=== PATIENT | male | born 1960 | race Caucasian/White ===

== ENCOUNTER 2020-12-14 12:42 | Outpatient (CLI) | payer OTHER | END 2020-12-14 23:59 | disposition home or self-care (01) | LOC: LAB 12:42 | PROVIDERS: ATTEND Specialist | DX: Z01.812 Encounter for preprocedural laboratory examination (principal); Z20.822 Contact with and (suspected) exposure to COVID-19 | CPT/HCPCS: C9803; U0003 ==

== ENCOUNTER 2020-12-17 05:11 | Inpatient (IN) | payer OTHER ==
[~2020-12-17] VITALS: Ht 177.8 cm; Wt 122.5 kg
[2020-12-17] MEDS ORDERED: BUPIVACAINE 0.5 % PF 150 MG/30 ML VIAL ONE (05:40)
[2020-12-17] MEDS ORDERED: ANESTHESIA TRAY IN PYXIS 1 EA TRAY MC ONE (05:40)
[2020-12-17] MEDS ORDERED: BUPIVACAINE 0.25% 75 MG/30 ML VIAL ONE (05:41)
[2020-12-17] MEDS ORDERED: BACITRACIN 50000 UNITS/VIAL ONE (05:41)
[2020-12-17] MEDS ORDERED: MIDAZOLAM HCL 2 MG/2ML VIAL ONE (06:19)
[2020-12-17] MEDS ORDERED: HYDROMORPHONE INJ 2 MG/ML DISP.SYRIN ONE (06:19)
[2020-12-17] MEDS ORDERED: TRANEXAMIC ACID 3,000 MG in SODIUM CHLORIDE IRRIG SOLUTION 70 ML IR ONE (07:00)
[2020-12-17] MEDS ORDERED: SEVOFLURANE 250 ML BOTTLE IH ONE (07:08)
[2020-12-17] MEDS ORDERED: FENTANYL PF 100MCG/2ML AMPUL ONE (08:21)
[2020-12-17] MEDS ORDERED: HYDROCODONE/APAP 5/325MG TABLET PO PRN (08:30)
[2020-12-17] MEDS ORDERED: ZOLPIDEM TARTRATE 5 MG TABLET PO PRN (08:30)
[2020-12-17] MEDS ORDERED: DOCUSATE SODIUM 250 MG CAPSULE PO PRN (08:30)
[2020-12-17] MEDS ORDERED: IV D5/0.45 NACL 1,000 ML IV PRN (08:30)
[2020-12-17] MEDS ORDERED: BISACODYL SUPP (10 MG) 10 MG/SUPP.RECT SUPP.RECT RC PRN (08:30)
[2020-12-17] MEDS ORDERED: ACETAMINOPHEN 325 MG TABLET PO PRN ×2 (08:30→11:30)
[2020-12-17] MEDS ORDERED: SENNOSIDES 8.6 MG TABLET PO PRN (08:30)
--- NOTE | 2020-12-17 09:10 | NUR ---
RN NOTE PATIENT ARRIVED INTO ROOM 309-2. PT IS AWAKE AND RESTING IN BED. A/O X3 AND TURKISH SPEAKING. COMPLAINT OF PAIN PRESENT AND PAIN MEDS GIVEN PER PROTOCOL. NO NAUSEA PRESENT. ON BIPAP AND MACHINE PROVIDED BY PT. ON RODENT EXTERMINATOR. ON BEDREST. NO EDEMA PRESENT. R KNEE CAST PRESENT. HL PRESENT ON L FA AND FLUSHES WELL. SAFETY MEASURES IN PLACE. SIDE RAILS RAISED. BED LOWERED. CALL LIGHT WITHIN REACH. WILL CONTINUE TO MONITOR.
[2020-12-17 09:20] VITALS: BP 157/92
[2020-12-17] MEDS ORDERED: HYDROMORPHONE 1 MG/1 ML DISP.SYRIN SQ ONE (10:00)
--- NOTE | 2020-12-17 11:00 | NUR ---
RN NOTE PT VISITED BY DR MARTINO FOR PAIN MANAGEMENT. OKAYED BY TO GIVE PO PAIN MED TO PT. WILL CONTINUE TO MONITOR.
[2020-12-17] MEDS: oxyCODONE IR immediate release 5 MG PO PRN (11:04)
[2020-12-17] MEDS ORDERED: LIDOCAINE 5% (PATCH) 1 EA PATCH TP ONE (11:08)
[2020-12-17] MEDS: LIDOCAINE 5% (PATCH) 1 EA PATCH TP SCH (11:20)
[2020-12-17] MEDS ORDERED: MAGNESIUM HYDROXIDE 30 ML UDC PO PRN (11:30)
[2020-12-17] MEDS ORDERED: diphenhydrAMINE HCL 25 MG CAPSULE PO PRN (11:30)
[2020-12-17] MEDS ORDERED: Z GUARD REMEDY 2 OZ OINT TP PRN (11:30)
[2020-12-17] MEDS ORDERED: MENTHOL/CETYLPYRD (CEPACOL) 1 LOZ LOZENGE PO PRN (11:30)
[2020-12-17] MEDS ORDERED: MAGNESIUM CITRATE 296 ML BOTTLE PO PRN (11:30)
[2020-12-17] MEDS ORDERED: MAG HYDROX/AL HYDROX/SIMETH 30 ML UDC PO PRN ×2 (11:30)
[2020-12-17] MEDS ORDERED: ZOLPIDEM TARTRATE 10 MG TABLET PO PRN (11:30)
[2020-12-17] MEDS ORDERED: ONDANSETRON HCL/PF 4 MG/2 ML VIAL IVP PRN (11:30)
[2020-12-17] MEDS ORDERED: CLONIDINE HCL 0.1 MG TABLET PO PRN (11:30)
[2020-12-17] MEDS ORDERED: PANTOPRAZOLE 40 MG TABLET.DR PO ONE (12:00)
[2020-12-17] MEDS ORDERED: CARI350T27 PO (12:08)
[2020-12-17] MEDS ORDERED: TAMS-12 PO (12:08)
[2020-12-17] MEDS ORDERED: ROSU20TA32 PO (12:08)
[2020-12-17] MEDS ORDERED: AMLO-213 PO (12:08)
[2020-12-17] MEDS ORDERED: FENO145T21 PO (12:08)
[2020-12-17] MEDS ORDERED: METF-881 PO (12:08)
[2020-12-17] MEDS ORDERED: EDARBYCLOR PO (12:08)
[2020-12-17] MEDS: HYDROMORPHONE 1 MG/1 ML DISP.SYRIN SQ PRN (14:01)
[2020-12-17] MEDS: ANCEF 1 GM/50 ML D5W IV SCH ×2 (14:31→23:45)
[2020-12-17] MEDS: ONDANSETRON HCL/PF 4 MG/2 ML VIAL IV PRN ×2 (14:34→18:15)
[2020-12-17 16:00] VITALS: BP 147/78
[2020-12-17] MEDS: DOCUSATE SODIUM 100 MG CAPSULE PO SCH (16:47)
--- NOTE | 2020-12-17 18:13 | NUR ---
RN NOTE PATIENT HAD 1 EPISODE OF EMESIS, ZOFRAN IVP GIVEN. WILL CONTINUE TO MONITOR.
--- NOTE | 2020-12-17 18:25 | NUR ---
RN CLOSING NOTE PT IS AWAKE AND RESTING IN BED. A/O X3 AND LAO SPEAKING. COMPLAINT OF PAIN PRESENT, BUT PT REFUSES PAIN MEDS DUE TO NAUSEA. NAUSEA PRESENT. NAUSEA MEDS GIVEN PER PROTOCOL. ON CPAP AND MACHINE PROVIDED BY PT. ON DENTAL TECHNICIAN METAL. ON BEDREST. NO EDEMA PRESENT. R KNEE CAST PRESENT. HL PRESENT ON L FA AND FLUSHES WELL. SAFETY MEASURES IN PLACE. SIDE RAILS RAISED. BED LOWERED. CALL LIGHT WITHIN REACH. REPORT TO BE GIVEN TO NIGHT NURSE FOR DEACON.
--- NOTE | 2020-12-17 20:40 | NUR ---
PIPE WELDER OPENING PATIENT IN BED WITH EYES CLOSED. NO S/S OF DISTRESS. NO C/O PAIN ARVIND. C-PAP IN BED SIDE WITH PATIENT. TELE MONITOR READING SR. SAFETY IN PLACE: BED IN LOWEST, LOCKED POSITION; CALL LIGHT WITHIN REACH. WILL CONTINUE TO MONITOR PATIENT.
[2020-12-17] MEDS ORDERED: FAMOTIDINE (20 MG) 20 MG TABLET PO SCH (21:00)
[2020-12-17] MEDS: ATORVASTATIN 40 MG TABLET PO SCH (21:11)
[2020-12-17] MEDS: TAMSULOSIN 0.4 MG CAP.SR.24H PO SCH (21:11)
[2020-12-17] MEDS: SENNOSIDES 8.6 MG TABLET PO SCH (21:11)
[2020-12-17 21:28] VITALS: BP 153/97
[2020-12-17] MEDS ORDERED: TAMSULOSIN 0.4 MG CAP.SR.24H PO SCH (22:00)
[2020-12-17] MEDS ORDERED: TEMAZEPAM 7.5 MG CAPSULE PO PRN (22:00)
[2020-12-17] MEDS ORDERED: METOCLOPRAMIDE HCL 10 MG TABLET PO PRN (22:00)
--- NOTE | 2020-12-17 22:50 | NUR ---
KEYING MACHINE OPERATOR NOTES PATIENT ASKED FOR SLEEPING MEDICATION. PER PATIENT THE PAIN MEDICATIONS MAKES HIM SICK AND ZOFRAN DO NOT ALLEVIATE THE N/V AND WHAT HE TAKES AT HOME IS SOMA. TEXTED DOCTOR SYNTHETIC DEPARTMENT SUPERVISOR, AND ORDERED REGLAN FOR NAUSEA AND RESTORIL FOR SLEEP. ORDERS CARRIED OUT.
[2020-12-18] VITALS: BP 151/91
--- NOTE | 2020-12-18 00:05 | NUR ---
SENIOR HADOOP DEVELOPER NOTES PATIENT C/O 10/10 PAIN ON R. KNEE. GIVEN REGLAN FOR N/V AND DILAUDID SQ. WILL REASSESS.
[2020-12-18] MEDS: HYDROMORPHONE 1 MG/1 ML DISP.SYRIN SQ PRN ×2 (00:06→20:26)
[2020-12-18 04:00] VITALS: BP 147/86
[2020-12-18] MEDS: CARISOPRODOL 350 MG TABLET PO PRN (04:06)
--- NOTE | 2020-12-18 04:06 | NUR ---
FULL SERVICE VENDING DRIVER NOTES IT HAS BEEN MORE THAN 3 HOURS SINCE PATIENT RECEIVED ZOFRAN, DILAUDID. RESTORIL WAS GIVEN 2243 BUT DID NOT WORK FOR PATIENT. PUT IN AN ORDER FOR SOMA 350MG. GAVE IT AT THIS TIME PER PATIENT REQUEST FOR MUSCLE PAIN. WILL CONTINUE TO MONITOR. ICE PACKS IN PLACE WELL FOR THE R. KNEE.
[2020-12-18 06:05] LABS: CALCIUM, SERUM 8.7 mg/dL (8.5-10.1); CREATININE 1.2 mg/dL (0.6-1.3); PHOSPHORUS 3.6 mg/dL (2.5-4.9); POTASSIUM 3.2 mmol/L (3.5-5.1)
--- NOTE | 2020-12-18 06:08 | NUR ---
POSTAL CARRIER CLOSING 309 PATIENT IN BED WITH EYES CLOSED. NO S/S OF RESPIRATORY DEPRESSION. PATIENT ABLE TO MAKE NEEDS KNOWN. A/OX4. ALL NEEDS ATTENDED. ALL SCHEDULED MEDS ADMINISTERED, PRN MEDS GIVEN. TELE MONITOR READING SB IN THE 50's. L. FA RUNNING D5 1/2 NS. TOLERATING. SAFETY KEPT IN PLACE THE WHOLE SHIFT: BED IN LOWEST, LOCKED POSITION; CALL LIGHT WITHIN REACH. NO SIGNIFICANT CHANGE SINCE LAST SHIFT. WILL ENDORSE CARE TO MORNING SHIFT NURSE.
[2020-12-18 06:25] LABS: BASOPHILS % (AUTO) 0.3 % (0.0-2.0); EOSINOPHILS % (AUTO) 0.3 % (0.0-6.0); HEMATOCRIT 39 % (39-51); HEMOGLOBIN 13.3 g/dL (13.5-17.5); LYMPHOCYTES # (AUTO) 1.8 /CMM (0.8-4.8); LYMPHOCYTES % (AUTO) 18.1 % (20.0-44.0); MEAN CORPUSCULAR HGB CONC 34 g/dl (31.0-36.0); MEAN CORPUSCULAR VOLUME 86 fL (80-96); MONOCYTES # (AUTO) 0.9 /CMM (0.1-1.30); MONOCYTES % (AUTO) 8.4 % (2.0-12.0); NEUTROPHILS # (AUTO) 7.4 /CMM (1.8-8.9); NEUTROPHILS % (AUTO) 72.9 % (43.0-81.0); PLATELET COUNT (AUTO) 240 /CMM (150-450); RED BLOOD CELL COUNT(AUTO) 4.61 MIL/uL (4.5-6.0); WHITE BLOOD COUNT (AUTO) 10.2 K/uL (4.3-11.0)
[2020-12-18 06:30] LABS: THYROID STIMULATING HORMONE 0.594 uIU/mL (0.358-3.74)
[2020-12-18] MEDS ORDERED: PANTOPRAZOLE 40 MG TABLET.DR PO SCH (07:30)
[2020-12-18 08:00] VITALS: BP 143/88
[2020-12-18] MEDS ORDERED: SCOPOLAMINE PATCH 1 MG/72HR TD SCH (08:00)
--- NOTE | 2020-12-18 08:00 | NUR ---
RN OPENING NOTE PT IS AWAKE AND RESTING IN BED. A/O X3 AND JAPANESE SPEAKING. COMPLAINT OF PAIN PRESENT AND PAIN MEDS GIVEN PER PROTOCOL. NAUSEA PRESENT AND MEDS GIVEN PER PROTOCOL. ON BIPAP AND MACHINE PROVIDED BY PT. ON HARP REGULATOR. ON BEDREST. NO EDEMA PRESENT. R KNEE CAST PRESENT. HL PRESENT ON L FA AND FLUSHES WELL. SAFETY MEASURES IN PLACE. SIDE RAILS RAISED. BED LOWERED. CALL LIGHT WITHIN REACH. WILL CONTINUE TO MONITOR.
[2020-12-18] MEDS: PANTOPRAZOLE 40 MG TABLET.DR PO SCH (09:24)
[2020-12-18] MEDS: LIDOCAINE 5% (PATCH) 1 EA PATCH TP SCH (09:24)
[2020-12-18] MEDS: FENOFIBRATE NANOCRYS (145 MG) 145 MG TABLET PO SCH (09:25)
[2020-12-18] MEDS: METFORMIN XR 500 MG TAB.SR.24H PO SCH (09:25)
[2020-12-18] MEDS: DOCUSATE SODIUM 100 MG CAPSULE PO SCH ×2 (09:25→18:20)
[2020-12-18] MEDS: AMLODIPINE BESYLATE 10 MG TABLET PO SCH (09:25)
[2020-12-18] MEDS: ASPIRIN 325 MG TABLET PO SCH (09:25)
[2020-12-18] MEDS: oxyCODONE IR immediate release 5 MG PO PRN ×2 (09:34→12:35)
[2020-12-18] MEDS ORDERED: POTASSIUM CHLORIDE 10 MEQ TABLET.SA PO ONE (10:00)
[2020-12-18] MEDS ORDERED: POTASSIUM CHLORIDE 20 MEQ TAB.PRT.SR PO ONE (13:14)
[2020-12-18] MEDS ORDERED: POTASSIUM CHLORIDE 10 MEQ TABLET.SA ONE (13:15)
[2020-12-18 16:00] VITALS: BP 120/76
--- NOTE | 2020-12-18 18:43 | NUR ---
RN CLOSING NOTE PT IS AWAKE AND RESTING IN BED. A/O X3 AND [place] SPEAKING. COMPLAINT OF PAIN PRESENT, BUT PT REFUSES PAIN MEDS DUE TO NAUSEA. NAUSEA PRESENT. NAUSEA MEDS GIVEN PER PROTOCOL. ON CPAP AND MACHINE PROVIDED BY PT. ON SHEARER PRINTED CIRCUIT BOARDS. ON BEDREST. NO EDEMA PRESENT. R KNEE CAST PRESENT. HL PRESENT ON L FA AND FLUSHES WELL. SAFETY MEASURES IN PLACE. SIDE RAILS RAISED. BED LOWERED. CALL LIGHT WITHIN REACH. REPORT TO BE GIVEN TO NIGHT NURSE FOR DEACON.
--- NOTE | 2020-12-18 19:22 | NUR ---
TELE OPENING NOTES PATIENT IN BED. A/OX4. NO S/S OF RESPIRATORY DEPRESSION. C/O PAIN ON THE R. KNEE. TELE BOX READING SR IN THE 60'S. PATIENT DOES NOT HAVE IV LINE, PER STEPHAN VIGIL, PATIENT DOES NOT HAVE ANY IV MEDICATIONS AND WAS CLEARED TO GO HOME TODAY BUT HE WAS NOT BECAUSE OF THE NAUSEA. SAFETY IN PLACE: BED IN LOWEST, LOCKED POSITION. CALL LIGHT WITHIN REACH. WILL CONTINUE
[2020-12-18 20:00] VITALS: BP 145/90
--- NOTE | 2020-12-18 20:26 | NUR ---
PIN DRAFTING MACHINE OPERATOR NOTES PATIENT COMPLAINT OF 9/10 PAIN. GIVEN DILAUDID 1 MG PRN. WILL REASSESS. ALSO HAVE TAKEN OFF PATIENTS LIDOCAINE PATCH. WILL REASSESS.
[2020-12-18] MEDS: SENNOSIDES 8.6 MG TABLET PO SCH (21:22)
[2020-12-18] MEDS: ATORVASTATIN 40 MG TABLET PO SCH (21:22)
[2020-12-18] MEDS: TAMSULOSIN 0.4 MG CAP.SR.24H PO SCH (21:23)
[2020-12-19] VITALS: BP 135/82
[2020-12-19] MEDS: CARISOPRODOL 350 MG TABLET PO PRN (00:02)
--- NOTE | 2020-12-19 00:09 | NUR ---
CONVENIENCE STORE CLERK NOTES PATIENT S/O MUSCLE PAIN. GIVEN SOMA PRN. THIS WAS GIVEN 3 HOURS AFTER DILAUDID. WILL MONITOR.
[2020-12-19 04:00] VITALS: BP 130/77
[2020-12-19] MEDS: oxyCODONE IR immediate release 5 MG PO PRN (04:52)
--- NOTE | 2020-12-19 04:54 | NUR ---
RN CARDIAC NOTES PATIENT COMPLAINT OF 6/10 PAIN. GIVEN OXYCODONE 10MG FOR MODERATE PAIN PRN. WILL REASSESS. PER PATIENT THE ICE PACK HELPS.
--- NOTE | 2020-12-19 06:35 | NUR ---
HEALTH SANITARIAN NOTES PATIENT IN BED. A/OX4. CPAP IN BED SIDE. NO S/S OF DISTRESS. PAIN MANAGED WITH ICE PACKS AND MEDICATIONS. TELE MONITOR READING SB/SR- 50's-80's. SAFETY KEPT IN PLACE THE WHOLE SHIFT: BED IN LOWEST, LOCKED POSITION. CALL LIGHT WITHIN REACH. NO SIGNIFICANT CHANGE SINCE LAST SHIFT. PATIENT PLAN FOR DISCHARGE TODAY. PER DR. MARTINO PATIENT IS GOING HOME TODAY. CALL LIGHT WITHIN REACH. NO SIGNIFICANT CHANGE SINCE LAST SHIFT. EXIT CARE DONE AND WILL JUST ENDORSE TO MORNING SHIFT NURSE.
[2020-12-19] MEDS: PANTOPRAZOLE 40 MG TABLET.DR PO SCH (07:54)
[2020-12-19 08:00] VITALS: BP 143/90
[2020-12-19] MEDS: FENOFIBRATE NANOCRYS (145 MG) 145 MG TABLET PO SCH (09:15)
[2020-12-19] MEDS: DOCUSATE SODIUM 100 MG CAPSULE PO SCH (09:15)
[2020-12-19 09:18] VITALS: BP 137/74
[2020-12-19] MEDS: LIDOCAINE 5% (PATCH) 1 EA PATCH TP SCH (09:18)
[2020-12-19] MEDS: ASPIRIN 325 MG TABLET PO SCH (09:18)
[2020-12-19] MEDS: METFORMIN XR 500 MG TAB.SR.24H PO SCH (09:18)
[2020-12-19] MEDS: AMLODIPINE BESYLATE 10 MG TABLET PO SCH (09:18)
[2020-12-19] MEDS ORDERED: ASPI-992 PO (10:09)
--- NOTE | 2020-12-19 12:06 | NUR ---
Copy of discharge instruction provided for patient review. Given prescription for new MD order. Patient and spouse verbalize understanding of follow up and aftercare. Kedar Davenport RN
== END 2020-12-19 14:44 | disposition home health service (06) | DRG 468 ==
LOC: DS 05:11 → MED 09:51 → TELE 14:13
PROVIDERS: ADMIT Registered Nurse; ATTEND Registered Nurse
PROC: 0SWC0JC Revision of Synthetic Substitute in Right Knee Joint, Patellar Surface, Open Approach (ICD-10-PCS; principal; 2020-12-17)
PROC: 5A09457 Assistance with Respiratory Ventilation, 24-96 Consecutive Hours, Continuous Positive Airway Pressure (ICD-10-PCS; 2020-12-17)
DX: T84.022A Instability of internal right knee prosthesis, initial encounter (principal); Y83.8 Other surgical procedures as the cause of abnormal reaction of the patient, or of later complication, without mention of misadventure at the time of the procedure; Y92.9 Unspecified place or not applicable; E11.9 Type 2 diabetes mellitus without complications; G47.33 Obstructive sleep apnea (adult) (pediatric); E66.01 Morbid (severe) obesity due to excess calories; K21.9 Gastro-esophageal reflux disease without esophagitis; M65.9 Synovitis and tenosynovitis, unspecified; E78.00 Pure hypercholesterolemia, unspecified; E78.5 Hyperlipidemia, unspecified; I10 Essential (primary) hypertension; N40.1 Benign prostatic hyperplasia with lower urinary tract symptoms; R35.1 Nocturia; Z79.899 Other long term (current) drug therapy; G89.29 Other chronic pain; Z96.651 Presence of right artificial knee joint; Z68.38 Body mass index [BMI] 38.0-38.9, adult; G47.00 Insomnia, unspecified; Z79.84 Long term (current) use of oral hypoglycemic drugs; Y99.0 Civilian activity done for income or pay; M25.512 Pain in left shoulder
CPT/HCPCS: 36415; 80048-TC; 80061-TC; 82962-TC; 83735-TC; 84100-TC; 84132-TC; 84443-TC; 85025-TC; 86850-TC; 87081-TC; 97112-TC; 97116-TC; 97530-TC; A4217; A6253; G0378; J0690; J1100; J1170; J1885; J2250; J2405; J2704; J2765; J3010; J3490; J7042; J7060; J8597